=== PATIENT | female | born 1985 | race Caucasian/White ===

== ENCOUNTER → 2016-07-04 | Outpatient (CLI) | payer BC, MEDICAID, SELFPAY ==
[~2016-07-04] MED LIST: LOPRESSOR50 MG PO
== END | disposition short-term general hospital (02) ==
LOC: CLONCO 09:43
DX: D64.9 Anemia, unspecified (principal); N96 Recurrent pregnancy loss; D68.9 Coagulation defect, unspecified; Z82.49 Family history of ischemic heart disease and other diseases of the circulatory system

== ENCOUNTER → 2016-07-17 | Outpatient (CLI) | payer BC, SELFPAY | END | disposition short-term general hospital (02) | LOC: CLONCO 11:13 | DX: E61.1 Iron deficiency (principal); Z83.2 Family history of diseases of the blood and blood-forming organs and certain disorders involving the immune mechanism; Z82.49 Family history of ischemic heart disease and other diseases of the circulatory system ==